=== PATIENT | male | born 2000 | race Two or more races ===

== ENCOUNTER 2019-10-24 08:56 | Emergency (ER) | payer SELFPAY ==
[~2019-10-24] VITALS: Ht 175.3 cm; Wt 90.7 kg
[2019-10-24 09:00] VITALS: BP 128/76
[2019-10-24] MEDS ORDERED: KETOROLAC TROMETH 60MG/2ML VIAL IM ONE (09:45)
== END 2019-10-24 10:03 | disposition home or self-care (01) ==
LOC: EDBD 08:56 → ER 08:56
DX: S39.012A Strain of muscle, fascia and tendon of lower back, initial encounter (principal); V43.52XA Car driver injured in collision with other type car in traffic accident, initial encounter; Y93.89 Activity, other specified; Y99.8 Other external cause status; Y92.410 Unspecified street and highway as the place of occurrence of the external cause
CPT/HCPCS: 72100; 96372; 99283; J1885